=== PATIENT | female | born 1970 | race Caucasian/White ===

== ENCOUNTER 2018-03-03 11:58 | Emergency (ER) | payer MEDICAID ==
[~2018-03-03] VITALS: Ht 167.6 cm; Wt 87.9 kg
[~2018-03-03 11:58] MED LIST: AMLO10TA13 PO; CIPR-230 PO; COLC0.6T69 PO; HYDR25TA4 PO; LISI-600 PO; METO50TA16 PO; OMEP20CA4 PO
[2018-03-03 12:21] VITALS: BP 146/114
[2018-03-03] MEDS ORDERED: ketorolac trometh inj. 60 MG/2 ML VIAL IM ONE (12:50)
[2018-03-03] MEDS ORDERED: LIDOcaine 5% patch TP ONE (12:50)
[2018-03-03] MEDS ORDERED: acetaminophen 325mg tablet PO ONE (12:50)
[2018-03-03] MEDS ORDERED: ACET-812 PO (13:26)
[2018-03-03] MEDS ORDERED: CYCL-1 PO (13:26)
[2018-03-03] MEDS ORDERED: IBUP-1984 PO (13:26)
[2018-03-03] MEDS ORDERED: LIDO700A32 TP (13:26)
== END 2018-03-03 13:35 | disposition home or self-care (01) ==
LOC: ER 11:59
DX: S46.912A Strain of unspecified muscle, fascia and tendon at shoulder and upper arm level, left arm, initial encounter (principal); I10 Essential (primary) hypertension; E11.9 Type 2 diabetes mellitus without complications; F17.200 Nicotine dependence, unspecified, uncomplicated; Z56.0 Unemployment, unspecified; Z86.19 Personal history of other infectious and parasitic diseases; Z88.5 Allergy status to narcotic agent; Z79.899 Other long term (current) drug therapy; X50.1XXA Overexertion from prolonged static or awkward postures, initial encounter; Y93.E5 Activity, floor mopping and cleaning; Y92.89 Other specified places as the place of occurrence of the external cause; Y99.8 Other external cause status
CPT/HCPCS: 96372; 99283; J1885

== ENCOUNTER 2018-04-25 17:28 | Emergency (ER) | payer MEDICAID ==
[~2018-04-25] VITALS: Ht 167.6 cm; Wt 88.0 kg
[~2018-04-25 17:28] MED LIST changes: +ACET-812 PO; +CYCL-1 PO; +LIDO700A32 TP
[2018-04-25] MEDS ORDERED: ketorolac trometh inj. 60 MG/2 ML VIAL IM ONE (18:25)
[2018-04-25] MEDS ORDERED: orphenadrine citrate 60mg/2ml inj. IM ONE (18:25)
[2018-04-25 18:48] VITALS: BP 145/89
== END 2018-04-25 18:50 | disposition home or self-care (01) ==
LOC: ER 17:29
DX: M54.41 Lumbago with sciatica, right side (principal); M79.671 Pain in right foot; I10 Essential (primary) hypertension; E11.9 Type 2 diabetes mellitus without complications; Z86.19 Personal history of other infectious and parasitic diseases; Z56.0 Unemployment, unspecified; Z88.5 Allergy status to narcotic agent; Z79.899 Other long term (current) drug therapy
CPT/HCPCS: 96372; 99284; J1885; J2360